=== PATIENT | female | born 1965 | race Caucasian/White ===

== ENCOUNTER 2017-07-02 10:28 | Day surgery (SDC) | payer BC, OTHER ==
[2017-07-01 12:58] VITALS: BMI 51.5
--- NOTE | 2017-07-02 08:12 | HP ---
[facility] - Chief Complaint Chief Complaint: left knee pain History of Present Illness: left knee medial and lateral meniscus tear History Source: Patient Limitations to Obtaining History: No Limitations - Past Medical History Allergies/Adverse Reactions: Allergies Allergy/AdvReac Type Severity Reaction Status Date / Time Penicillins Allergy Intermediate Verified 07/01/17 13:01 ...LMP: 09/16/15 ...LMP Comment: POSTMENOPAUSAL - Current Medications Current Medications: Home Medications Medication Instructions Recorded Diltiazem Cd [Cardizem Cd -] 240 mg PO DAILY 07/01/17 Satellite Physical Exam - Physical Examination General Appearance: Well Nourished ENT: Clear Lung: Clear to auscultation Heart: Regular rate & rhythm Breasts: Soft Abdomen: Soft Extremities: No edema Satellite Impression/Plan - Impression/Plan Impression: left knee lateral and medial meniscus tear Operative Procedure: left knee arthroscopy Date to be Performed: 07/02/17
[2017-07-02] MEDS ORDERED: MIDAZOLAM HCL 2 MG/2 ML SINGLE DOSE VIAL ONE ×2 (14:40→15:41)
[2017-07-02] MEDS ORDERED: PROPOFOL 20 ML ONE (14:40)
[2017-07-02] MEDS ORDERED: BUPIVACAINE HCL/PF 0.5% (5MG/ML) 10 ML VIAL ONE (15:07)
[2017-07-02] MEDS ORDERED: ceFAZolin SODIUM 1 GM VIAL IVPB ONE (15:30)
[2017-07-02] MEDS ORDERED: ePHEDrine SULFATE 50 MG/1 ML AMPULE ONE (15:46)
[2017-07-02] MEDS ORDERED: BUPIVACAINE HCL/PF 0.5% (5MG/ML) 10 ML VIAL IJ ONE (16:04)
--- NOTE | 2017-07-02 16:19 | OP ---
Operative Note - Note: Operative Date: 07/02/17 Pre-Operative Diagnosis: left knee pain, OA Operation: left knee arthroscopy, debridement chondroplasty, PLICA excision Post-Operative Diagnosis: Other Surgeon: Sudhir Starr Dining Host: Jame Kang Anesthesiologist/MOTHERS HELPER: Darshana Casey Anesthesia: Spinal, Local Specimens Removed: shavings Estimated Blood Loss (mls): 0 Drains, Volume Out (mls): 0 Blood Volume Replaced (mls): 0 Fluid Volume Replaced (mls): 500 Operative Report Dictated: Yes
[2017-07-02] MEDS ORDERED: ONDANSETRON 4 MG/2 ML VIAL IVPUSH PRN (16:42)
[2017-07-02] MEDS ORDERED: oxyCODONE HCL 5 MG TABLET PO PRN ×2 (16:42)
[2017-07-02] MEDS ORDERED: LACTATED RINGERS SOLUTION 1,000 ML IV SCH (16:45)
[2017-07-02 18:40] VITALS: TEMP 97.8
[2017-07-02 19:59] VITALS: BP 135/72; PULSE 92
--- NOTE | 2017-07-03 09:03 | OP ---
DATE OF OPERATION: 07/02/2017 PROCEDURE: Left knee arthroscopy, debridement chondroplasty, and plica excision. PREOPERATIVE DIAGNOSIS: Left knee pain, meniscal tears, and arthritis. POSTOPERATIVE DIAGNOSIS: Left knee medial and patellofemoral osteoarthritis and plica. SURGEON: Sudhir Starr MD [employer] STENOGRAPHER: Jame Kang MD DESCRIPTION OF PROCEDURE: The patient is a 51-year-old female with a preoperative diagnosis of left knee pain and possible meniscus tears and arthritis. After understanding the potential risks, complications, alternatives, and benefits of surgery versus nonsurgical treatment, the patient elected to undergo this procedure. The patient was brought to the operating room, peripheral IV placed, IV sedation given. IV Ancef 2 g was given without any reaction. Ample Webril was placed around the left thigh. She was placed into the C-clamp leg kuo with the styrofoam ring and ample padding throughout. The left lower extremity was prepped and draped in a sterile fashion, elevated and exsanguinated with Esmarch bandage and tourniquet inflated to 250 mmHg. A superomedial outflow portal was established. A lateral portal was established. Arthroscope was introduced into the joint. Under direct visualization using a spinal needle, a needle portal was established. Diagnostic arthroscopy was performed. 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 This was gently debrided with the curved shaver. The medial femoral condyle looked good and the medial meniscus was explored, found to have no tear. Intercondylar notch looked good. There was some synovitis which was removed, but the ACL looked good. It was probed, had the appropriate tension. Next, the lateral compartment was directly visualized. The lateral femoral condyle looked fine. The lateral meniscus looked fine. It was probed. No tear was found. Patient did have grade 2 chondromalacia of the lateral tibial plateau as well. This did not need to be debrided. The patellofemoral joint was then directly visualized. It was definitely grade 2 and areas of grade 3 osteoarthritis of both the femoral trochlea and the undersurface of the patella. This was debrided with the curved shaver. In addition, the patient had a large tight plica going across the anterior aspect of the knee correlating to the area of cartilage damage in the anterior aspect of the femoral trochlea. Photographs were taken. This was cut with a straight biter forceps and then debrided with a curved shaver. The rest of the knee was explored. No other abnormalities were found. It was copiously irrigated and washed out, all excess saline removed, the arthroscopy portals closed with 3-0 nylon sutures, 20 mL of 0.5% Marcaine introduced into the joint. It was then washed and dried, covered with Xeroform and 4 x 4 gauze, and two 6-inch Marcos bandages. Tourniquet was taken down after total tourniquet time of 25 minutes. There were no complications during the case. Patient tolerated the procedure quite well and was brought to the ambulatory recovery room in stable condition. Mike [id number]
--- NOTE | 2017-07-04 16:17 | PATH ---
Surgical Pathology Report Patient Name: DILIA ROBLEDO [facility]. Rec. #: [id number] /Age/Gender: 1965 (Age: 51) / F Account: [id number] Location: [facility] SURGICAL Taken: 07/02/2017 Received: 07/03/2017 Reported: 07/04/2017 Physicians: Mike Robert M.D. Specimen(s) Received LEFT KNEE SHAVINGS Clinical History Tear left knee Final Diagnosis KNEE SHAVINGS, LEFT, ARTHROSCOPY AND DEBRIDEMENT CHONDROPLASTY: FRAGMENTS OF BENIGN FIBROCARTILAGE, SYNOVIUM, AND FIBROADIPOSE TISSUE. Electronically Signed Iona Shoemaker M.D. Gross Description Received in formalin, labeled "left knee shavings," is a 4.0 x 3.2 x 0.4 cm. aggregate of el-yellow soft tissue fragments. A operations representative portion is submitted in one cassette. 07/03/201707/03/2017
== END 2017-07-02 19:45 | disposition home or self-care (01) ==
LOC: JASU-SURG 10:28
PROVIDERS: ATTEND Orthopaedic Surgery
PROC: 0SBD4ZZ Excision of Left Knee Joint, Percutaneous Endoscopic Approach (ICD-10-PCS; 2017-07-02)
PROC: 0SBD4ZZ Excision of Left Knee Joint, Percutaneous Endoscopic Approach (ICD-10-PCS; principal; 2017-07-02 11:30)
DX: M17.12 Unilateral primary osteoarthritis, left knee (principal); M67.52 Plica syndrome, left knee
CPT/HCPCS: 88304-TC; 94760